=== PATIENT | male | born 1945 | race Caucasian/White ===

== ENCOUNTER → 2019-07-17 16:02 | Outpatient (CLI) | payer MEDICARE, SELFPAY | PROVIDERS: Family Provider Family Medicine; PCP Family Medicine; Referring Provider Otolaryngology Otolaryngology/Facial Plastic Surgery; Visit Provider Otolaryngology Otolaryngology/Facial Plastic Surgery | DX: J32.9 Chronic sinusitis, unspecified (principal) | CPT/HCPCS: 87070; 87186; 87205 ==

== ENCOUNTER → 2019-07-31 15:46 | Outpatient (CLI) | payer MEDICARE, SELFPAY ==
[2015-12-28 15:57] VITALS: BMI 26.6
== END ==
PROVIDERS: PCP Family Medicine; Referring Provider Otolaryngology Otolaryngology/Facial Plastic Surgery; Visit Provider Otolaryngology Otolaryngology/Facial Plastic Surgery
DX: J34.89 Other specified disorders of nose and nasal sinuses (principal)
CPT/HCPCS: 87070; 87077; 87186; 87205

== ENCOUNTER → 2020-11-25 11:34 | Outpatient (CLI) | payer MEDICARE, SELFPAY ==
[2020-11-25 06:23] VITALS: BMI 27.9
[2020-11-25 11:53] LABS: Absolute Lymphocyte Count 0.94 X10^3/uL (0.83-4.51); Absolute Neutrophil Count 3.2 X10^3/uL (2.0-7.7); Basophil# 0.01 X10^3/uL; Basophil% 0.2 % (0-1); Eosinophil# 0.25 X10^3/uL; Eosinophils% 5.1 % (0-5); Hematocrit 36.7 % (40-54); Hemoglobin 12.1 g/dL (13.0-16.5); Lymphocyte # 0.94 X10^3/ul (0.83-4.51); Lymphocyte % 19.1 % (19-41); Mean Corpuscular Hgb 31.8 pg (27.0-32.0); Mean Corpuscular Volume 96.3 fL (80-94); Mean Platelet Vol. 9.7 fl (6.2-12.0); Monocyte% 10.2 % (0-10); NRBC Flagged by Analyzer 0 % (0-5); Neutrophil % 65.2 % (47-70); Platelet Count 146 K/mm3 (150-450); RBC Distribution Width CV 13.1 % (11.6-14.6); RBC Distribution Width SD 46.3 fl (35.1-43.9); Red Blood Count 3.81 M/mm3 (4.6-6.2); White Blood Count 4.9 K/mm3 (4.4-11.0)
[2020-11-28 20:08] LABS: Alternaria tenuis <0.10 kU/L (Class 0); Ash, White <0.10 kU/L (Class 0); Aspergillus fumigatus <0.10 kU/L (Class 0); Bermuda Grass <0.10 kU/L (Class 0); Birch <0.10 kU/L (Class 0); Black Walnut <0.10 kU/L (Class 0); Cat Hair / Dander,Stand <0.10 kU/L (Class 0); Cedar, Mountain <0.10 kU/L (Class 0); Cladosporium herbarum <0.10 kU/L (Class 0); Cockroach, American <0.10 kU/L (Class 0); Cottonwood <0.10 kU/L (Class 0); D farinae Mite <0.10 kU/L (Class 0); D pteronyssinus <0.10 kU/L (Class 0); Dog Epithelia <0.10 kU/L (Class 0); Elm, American White <0.10 kU/L (Class 0); Immunoglobulin E 2 IU/mL (6-495); Maple/Box Elder <0.10 kU/L (Class 0); Mulberry, White <0.10 kU/L (Class 0); Oak, White <0.10 kU/L (Class 0); Pecan <0.10 kU/L (Class 0); Penicillium Notatum <0.10 kU/L (Class 0); Pigweed, Rough <0.10 kU/L (Class 0); Ragweed, Short/Common <0.10 kU/L (Class 0); Russian Thistle <0.10 kU/L (Class 0); Sheep Sorrel <0.10 kU/L (Class 0); Sycamore, American <0.10 kU/L (Class 0); Timothy Grass <0.10 kU/L (Class 0)
[2020-11-28 21:22] LABS: Mouse Urine <0.10 kU/L (Class 0)
[2020-11-29 20:08] LABS: Aspirgillus flavus Negative (Neg:<1:1); Aspirgillus fumigatus Negative (Neg:<1:1); Aspirgillus niger Negative (Neg:<1:1); Cytoplasmic Ab (C-ANCA) <1:20 titer (Neg:<1:20)
[2020-11-30 09:12] LABS: Immunoglobulin E 2 IU/mL (6-495); Perinuclear Ab (P-ANCA) <1:20 titer (Neg:<1:20)
== END ==
PROVIDERS: PCP Family Medicine; Visit Provider Internal Medicine Critical Care Medicine
DX: J45.909 Unspecified asthma, uncomplicated (principal)
CPT/HCPCS: 36415; 82785; 85025; 86003; 86256; 86606

== ENCOUNTER 2021-08-01 02:39 | Emergency (ER) | payer MEDICARE, SELFPAY ==
[2021-08-01 02:47] VITALS: BP 63/51; PULSE 93; RESP 18; O2SAT 78
--- NOTE | 2021-08-01 02:51 | EKG12_ITS ---
Test Reason : CPR Blood Pressure : / mmHG Vent. Rate : 075 BPM Atrial Rate : 075 BPM P-R Int : 000 ms QRS Dur : 164 ms QT Int : 440 ms P-R-T Axes : 000 110 073 degrees QTc Int : 491 ms Atrial fibrillation with premature ventricular or aberrantly conducted complexes Non-specific intra-ventricular conduction block ST elevation consider inferolateral injury or acute infarct hyperkalemia Consider right ventricular involvement in acute inferior infarct Abnormal ECG Confirmed by SHIELA MAE, CARMEN ([id number]), medical editor YUDELKA YUEN ([id number]) on 08/04/2021 9:37:38 AM Referred By: ZORAIDA Confirmed By:CARMEN KUO MD
[2021-08-01 02:57] VITALS: TEMP 35.5; BMI 28.0
--- NOTE | 2021-08-01 03:01 | EX.ED.DYSGE1 ---
HPI History of Present Illness Chief Complaint: CPR Informant: EMS Narrative Narrative: 76-year-old male reportedly got out of bed was holding his chest and collapsed. Reportedly his started CPR and called 911. Initially EMT was on scene with an AED and it advised a shockable rhythm. Patient was intubated and multiple rounds of epinephrine and defibrillation was given. Pulse was lost in route to the hospital and CPR was in progress upon his arrival. [facility] Medical History Hayfever Home Medications cetirizine [Zyrtec] 10 mg PO DAILY 12/28/15 [History Last Taken Unknown] metformin 1,000 mg PO BIDCM 12/28/15 [History Last Taken Unknown] zolpidem [Ambien] 10 mg PO QHS 12/28/15 [History Last Taken Unknown] albuterol sulfate 90 mcg/actuation aerosol inhaler 2 puff INHALATION Q6H PRN 11/22/20 [History Last Taken Unknown] aspirin 81 mg tablet,delayed release 81 mg PO DAILY 11/25/20 [History Last Taken Unknown] cyanocobalamin (vitamin B-12) 1,000 mcg capsule 1,000 mcg PO DAILY 11/25/20 [History Last Taken Unknown] diclofenac sodium 75 mg tablet,delayed release 75 mg PO BID 11/25/20 [History Last Taken Unknown] fluticasone 100 mcg-salmeterol 50 mcg/dose blistr powdr for inhalation 1 inh INHALATION BID 11/25/20 [History Last Taken Unknown] glucosamine sulfate 500 mg capsule 500 mg PO TID 11/25/20 [History Last Taken Unknown] ipratropium bromide 42 mcg (0.06 %) nasal spray 2 spray INTRANASAL TID 11/25/20 [History Last Taken Unknown] lisinopril 20 mg tablet 20 mg PO DAILY 11/25/20 [History Last Taken Unknown] multivitamin 1 tab PO DAILY 11/25/20 [History Last Taken Unknown] multivitamin with min no.36-iron,carbonyl-FA 16 mg iron-0.38 mg tablet tab PO 11/25/20 [History Last Taken Unknown] omega-3 fatty acids 1,000 mg capsule 1,000 mg PO DAILY 11/25/20 [History Last Taken Unknown] omeprazole 20 mg capsule,delayed release 20 mg PO DAILY 11/25/20 [History Last Taken Unknown] fluticasone propionate 50 mcg/actuation nasal spray,suspension 2 spray INTRANASAL DAILY #1 ea 01/07/21 [Rx Last Taken Unknown] montelukast 10 mg tablet 10 mg PO QPM #30 tab 01/07/21 [Rx Last Taken Unknown] Allergy/AdvReac Type Severity Reaction Status Date / Time atorvastatin AdvReac myalgia Verified 01/01/21 09:40 Family History Father Colon cancer Diabetes Mother Colon cancer Grandmother Diabetes Surgical History H/O vasectomy Social History Smoking Status: Former smoker quit date: 02/25/88 pack-years: 24 ROS ROS ED Review of Systems ROS Unobtainable: due to endotracheal tube and due to mental status EXAM Physical Exam Const Vital Signs: 08/01/21 02:47 08/01/21 02:57 Temperature 96 F L Temperature Source Temporal Pulse Rate 93 Respiratory Rate 18 Blood Pressure 63/51 L Blood Pressure Mean 55 Pulse Ox 78 Oxygen Delivery Method Mechanical Ventilator Positive well nourished and well developed General Appearance ED: well developed HEENT Reports TM's clear HEENT Narrative: Endotracheal tube in place. Negative for trauma Tympanic Membrane ED: Yes TM's clear Eyes Eyes Narrative: Pupils fixed at 4 mm bilaterally Neck no JVD Chest Wall Chest Narrative: There are superficial abrasions on the chest due to the CPR device Resp Resp Narrative: Breath sounds are slightly diminished on the left. Bagged respirations Extremity Extremity Narrative: There is a left tibial IO in place. The calf is soft. Neuro Neuro Narrative: Patient is unresponsive Skin Skin Narrative: Patient is cold and pale Trauma: abrasion MDM MDM MDM Narrative Medical decision making narrative: CPR was continued and epinephrine given through IO of the left tibia. This was circulated. The patient did briefly regain a radial pulse. EKG was obtained which demonstrates global cardiac ischemia. Patient bradycardia down into asystole and was pronounced at 0254 hours. Discharge Plan Triage Chief Complaint: CPR ED Provider: Jim Morales Dx/Rx/DC Orders Clinical Impression: Cardiac arrest Prescriptions: No Action ipratropium bromide 42 mcg (0.06 %) spray,non-aerosol 2 spray intranasal TID RF: 0 fluticasone propion-salmeterol [Wixela Inhub] 100-50 mcg/dose blister with device 1 inh inhalation BID RF: 0 lisinopril 20 mg tablet 20 mg PO DAILY RF: 0 omeprazole 20 mg capsule,delayed release(DR/EC) 20 mg PO DAILY RF: 0 multivitamin Tablet 1 tab PO DAILY RF: 0 glucosamine sulfate 500 mg capsule 500 mg PO TID RF: 0 aspirin 81 mg tablet,delayed release (DR/EC) 81 mg PO DAILY RF: 0 cyanocobalamin (vitamin B-12) 1,000 mcg capsule 1,000 mcg PO DAILY RF: 0 diclofenac sodium 75 mg tablet,delayed release (DR/EC) 75 mg PO BID RF: 0 omega-3 fatty acids [Fish Oil Concentrate] 1,000 mg capsule 1,000 mg PO DAILY RF: 0 Geritol Complete 16 mg iron- 0.38 mg tablet PO RF: 0 albuterol sulfate 90 mcg/actuation HFA aerosol inhaler 2 puff inhalation Q6H PRNRF: 0 metformin 1,000 MG tablet 1,000 mg PO BIDCM RF: 0 zolpidem [Ambien] 10 MG tablet 10 mg PO QHS RF: 0 cetirizine [Zyrtec] 10 MG capsule 10 mg PO DAILY RF: 0 montelukast 10 mg tablet 10 mg PO QPM Qty: 30 RF: 0 fluticasone propionate 50 mcg/actuation spray,suspension 2 spray intranasal DAILY Qty: 1 RF: 0 Primary Care Provider: Michael Hobbs Referrals: Michael Hobbs MD [Primary Care Provider] - Disposition Disposition: Date/Time: 08/01/21 02:54
--- NOTE | 2021-08-01 03:08 | CPS ---
pt intubated by Squad prior to arrival. Pt .
--- NOTE | 2021-08-01 03:38 | ED.RN ---
PATIENT AND FAMILY ARRIVED. DR. CONWAY SPOKE WITH FAMILY.
--- NOTE | 2021-08-01 04:52 | ED.RN ---
FAMILY LEFT DEPARTMENT.
== END 2021-08-01 05:23 ==
PROVIDERS: Emergency Provider Emergency Medicine; PCP Family Medicine; Visit Provider Emergency Medicine
DX: I46.9 Cardiac arrest, cause unspecified (principal); Z87.891 Personal history of nicotine dependence
CPT/HCPCS: 92950; 93005; 99282; J7030